=== PATIENT | male | born 1985 | race Asian ===

== ENCOUNTER 2019-10-14 16:54 | Outpatient (CLI) | payer OTHER ==
[2019-10-14 17:56] LABS: ALBUMIN 4.4 g/dL (3.4-5.0); ANION GAP 11.3 (8-16); CARBON DIOXIDE 30.9 mmol/L (21-32); CHOL/HDL RATIO 2.8 (1-4.5); POTASSIUM 4.2 mmol/L (3.5-5.1); THYROID STIMULATING HORMONE 2.72 uIU/mL (0.34-3.74); TOTAL BILIRUBIN 0.7 mg/dL (0.0-1.0)
[2019-10-14 18:18] LABS: BASOPHILS # (AUTO) 0.1 K/uL (0.00-0.22); BASOPHILS % (AUTO) 1.1 % (0.0-2.0); EOSINOPHILS % (AUTO) 0.5 % (0.0-4.0); HEMOGLOBIN 15.6 g/dL (12.0-18.0); LYMPHOCYTES % (AUTO) 22.8 % (20.5-51.1); MEAN CORPUSCULAR HEMOGLOBIN 31 pg (27-31); MEAN CORPUSCULAR HGB CONC 34 g/dL (33-37); MEAN CORPUSCULAR VOLUME 91.9 fL (80-94); MONOCYTES # (AUTO) 0.3 K/uL (0.8-1.0); NEUTROPHILS # (AUTO) 6.4 K/uL (1.8-7.7); NEUTROPHILS % (AUTO) 72.6 % (42.2-75.2); PLATELET COUNT (AUTO) 241 K/uL (140-450); RED BLOOD CELL COUNT(AUTO) 5.01 MIL/uL (4.20-6.10); RED CELL DISTRIBUTION WIDTH 13.1 % (11.6-13.7); WHITE BLOOD COUNT (AUTO) 8.9 K/uL (4.8-10.8)
[2019-10-16 08:09] LABS: RAPID PLASMA REAGIN NON-REACTIVE (Non Reactiv)
== END 2019-10-14 20:16 | disposition home or self-care (01) ==
LOC: MLB 16:54
PROVIDERS: ATTEND Internal Medicine Geriatric Medicine
DX: Z00.00 Encounter for general adult medical examination without abnormal findings (principal)
CPT/HCPCS: 36415; 80053; 82306; 84443; 85025; 86592; 86702; 87110; 87299